=== PATIENT | female | born 1995 | race African-American/Black ===

== ENCOUNTER 2019-03-18 00:18 | Inpatient (IN) | payer MEDICAID ==
[~2019-03-18] VITALS: Ht 160 cm; Wt 70.8 kg
[2019-03-18] VITALS (9 sets, daily range): BP systolic 118–146; BP diastolic 68–100
[2019-03-18 02:30] LABS: Urine Amorphous Crystal FEW /hpf (None Seen); Urine Bacteria FEW /hpf (None Seen); Urine Blood Negative /uL (Negative); Urine Mucus FEW (None Seen); Urine Specific Gravity 1.016 (1.001-1.035); Urine WBC 10 /hpf (0 - 5)
[2019-03-18 02:49] LABS: Alcohol, Urine < 3.0 mg/dL (0-5); Amphetamine Screen, Urine NEGATIVE (NEGATIVE); Barbiturate Scree,Urine NEGATIVE (NEGATIVE); Benzodiazephine Screen, Urine NEGATIVE (NEGATIVE); Cannabinoid Screen, Urine NEGATIVE (NEGATIVE); Cocaine Screen, Urine NEGATIVE (NEGATIVE); Opiate Scree,Urine NEGATIVE (NEGATIVE); Phencyclidine Screen, Urine NEGATIVE (NEGATIVE)
[2019-03-18] MEDS ORDERED: LACT. RINGERS/OXYTOCIN 20UNITS 1,000 ML IV SCH ×2 (03:06→07:22)
[2019-03-18] MEDS ORDERED: PENICILLIN G POT 5MIL/D5 50ML 50 ML IV ONE (03:15)
[2019-03-18] MEDS ORDERED: PHISODERM TOP SOLN 240ML BTL TOP PRN (03:15)
[2019-03-18] MEDS ORDERED: METHYLERGONOVINE MALEATE 0.2 MG/ML AMP IM PRN (03:15)
[2019-03-18] MEDS ORDERED: LIDOCAINE 2%HCL (LOCAL ANESTH.) INJ 20ML MDV ID ONE (03:15)
[2019-03-18] MEDS ORDERED: DERMOPLAST 60ML BOTTLE TOP PRN (03:15)
[2019-03-18] MEDS ORDERED: WITCH HAZEL-GLYCERIN PAD TOP PRN (03:15)
[2019-03-18] MEDS: LACTATED RINGER'S 1,000 ML IV SCH ×2 (03:18→10:22)
[2019-03-18] MEDS ORDERED: ceFAZolin 1GM/50ML 50 ML IV SCH ×2 (03:45→12:00)
[2019-03-18] MEDS: BUTORPHANOL TARTRATE 2 MG/1 ML VIAL IV PRN ×2 (04:00→08:03)
[2019-03-18 04:27] LABS: Basophils # (auto) 0 uL; Basophils % (auto) 0.2 % (0.0-2.0); Eosinophils # (auto) 0 uL; Hemoglobin 9.6 g/dL (12.2-16.2); Mean Corpuscular Volume 69.6 fL (80.0-100.0); Red Cell Distribution Width 16.9 % (11.8-14.3)
[2019-03-18 04:28] LABS: Eosinophils % (auto) 0.3 % (0.0-7.0); Hematocrit 29.9 % (36.0-46.0); Lymphocytes # (auto) 0.8 uL; Mean Corpuscular Hemoglobin 22.3 pg (28.0-32.0); Mean Corpuscular Hgb Conc. 32.1 g/dL (32.0-36.0); Monocytes # (auto) 0.4 uL; Monocytes % (auto) 4.7 % (0.0-12.0); Neutrophils % (auto) 84.8 % (37.0-80.0); Nucleated Red Blood Cells % 0.2 %; Platelet Count (auto) 216 10^3/uL (140-450); Red Blood Cells 4.29 10^6/uL (4.0-5.20); White Blood Cell 8.3 10^3/uL (4.4-10.8)
[2019-03-18 04:37] LABS: INR 0.93 (0.9-1.15)
[2019-03-18 04:41] LABS: Albumin 2.7 g/dL (3.4-5.0); Calcium 8.6 mg/dL (8.5-10.1); Potassium 3.6 mmol/L (3.5-5.1); Uric Acid 5.3 mg/dL (2.6-6.0)
[2019-03-18 04:44] LABS: BUN/Creatinine Ratio 11.3; Bilirubin, Total 0.2 mg/dL (0.2-1.0); Total Protein 6.5 g/dL (6.4-8.2)
[2019-03-18] MEDS ORDERED: PENICILLIN G POTASSIUM 2,500,000 UNITS in D5W 5% 50 ML IV SCH (07:15)
[2019-03-18] MEDS ORDERED: TERBUTALINE SULFATE 1 MG/ML 1ML VIAL SC PRN (07:30)
[2019-03-18] MEDS ORDERED: LIDOCAINE 2%HCL (LOCAL ANESTH.) INJ 20ML MDV ONE (11:04)
[2019-03-18] MEDS ORDERED: CARBOPROST TROMETHAMINE 250 MCG/1ML VIAL IM ONE ×2 (11:34→11:45)
[2019-03-18] MEDS ORDERED: DIPHENOXYLATE W/ATROPINE 2.5 MG TAB PO PRN (11:45)
[2019-03-18] MEDS ORDERED: ONDANSETRON HCL 4 MG/2 ML VIAL IV PRN (11:45)
[2019-03-18] MEDS: IBUPROFEN 600 MG TAB PO PRN ×3 (12:22→23:32)
[2019-03-18] MEDS: ACETAMINOPHEN 325 MG TAB PO PRN ×2 (17:11→21:51)
--- NOTE | 2019-03-18 19:09 | NUR ---
Heart Rate of 130bpm, orders received from for Ancef 1gm [id number], LR at 100ml/hr and a CBC draw. Will follow orders.
[2019-03-18] MEDS: ceFAZolin 1GM/50ML 50 ML IV SCH (20:21)
--- NOTE | 2019-03-18 20:30 | NUR ---
Bottle-feeding Education: Patient encouraged to breastfeed. Benefits of and the risk of providing formula to was discussed. Patient verbalized understanding of the benefits and is aware of risk and insists on bottle-feeding. Formula provided and instruction on formula preparation from the New Beginning booklet reviewed with patient.
[2019-03-18 21:24] LABS: Basophils # (auto) 0 uL; Eosinophils # (auto) 0 uL; Nucleated Red Blood Cells % 0.1 %; White Blood Cell 15.6 10^3/uL (4.4-10.8)
[2019-03-18 21:28] LABS: Basophils % (auto) 0.1 % (0.0-2.0); Hematocrit 27.4 % (36.0-46.0); Hemoglobin 8.7 g/dL (12.2-16.2); Lymphocytes # (auto) 0.9 uL; Lymphocytes % (auto) 5.9 % (10.0-50.0); Mean Corpuscular Hemoglobin 22.1 pg (28.0-32.0); Mean Corpuscular Hgb Conc. 31.8 g/dL (32.0-36.0); Mean Corpuscular Volume 69.7 fL (80.0-100.0); Monocytes # (auto) 0.8 uL; Monocytes % (auto) 5.2 % (0.0-12.0); Neutrophils # (auto) 13.9 uL; Neutrophils % (auto) 88.8 % (37.0-80.0); Platelet Count (auto) 198 10^3/uL (140-450); Red Blood Cells 3.93 10^6/uL (4.0-5.20)
[2019-03-18] MEDS: FERROUS SULFATE 325 MG TAB PO SCH (21:46)
[2019-03-18] MEDS ORDERED: PREN-96 PO (23:30)
[2019-03-19 03:00] VITALS: BP 132/62
[2019-03-19] MEDS: IBUPROFEN 600 MG TAB PO PRN ×3 (03:02→17:14)
[2019-03-19] MEDS: ceFAZolin 1GM/50ML 50 ML IV SCH ×3 (03:02→19:30)
--- NOTE | 2019-03-19 03:11 | NUR ---
Hospitalist Michael [employer] [employer]OTE[employer] SPECIALIST calls unit. SBAR given including medications patient has received since delivery, meconium on delivery, recent vital signs, and labs. Hospitalist states he will place orders.
[2019-03-19] MEDS ORDERED: SODIUM CHLORIDE 0.9% 1,000 ML IV ONE (03:15)
--- NOTE | 2019-03-19 04:00 | NUR ---
EKG performed by RENO Garcia. Patient sleeping during reading. Strip taken to Hospitalist and states he will return strip after reviewing it.
[2019-03-19 05:06] LABS: RPR Non Reactive (Non Reactive)
[2019-03-19] MEDS: FERROUS SULFATE 325 MG TAB PO SCH ×2 (05:48→14:10)
[2019-03-19] MEDS: ACETAMINOPHEN 325 MG TAB PO PRN ×2 (05:49→19:57)
[2019-03-19 06:29] LABS: Albumin 1.8 g/dL (3.4-5.0); Calcium 7.4 mg/dL (8.5-10.1)
[2019-03-19 06:32] LABS: Lactic Acid w/Reflex 2.1 mmol/L (0.4-2.0)
[2019-03-19 06:32] LABS: Bilirubin, Total 0.2 mg/dL (0.2-1.0)
[2019-03-19 07:00] VITALS: BP 127/80
--- NOTE | 2019-03-19 07:00 | NUR ---
Assessment completed. Updated MOB and FOB on plan of care, orders, pain management, plan of care for infant, , bottle feeding, need to hold during feeding, burp after each feeding, call for assistance, medications, lab work. Verbalized understanding of all information. Board updated. Call light in reach. Sd rails up x2. All questions and concerns addressed. Educated on need to not have large blanket on while fever is present due to this intervention will increase temperature. Verbalized understanding.
[2019-03-19 07:06] LABS: Rubella Antibodies, IgG 3.66 index (Immune >0.99)
[2019-03-19] MEDS ORDERED: VANCOMYCIN PER PHARMACY 0 MG IV SCH (07:15)
[2019-03-19] MEDS: DOCUSATE CALCIUM 240 MG CAP PO SCH (10:48)
[2019-03-19 11:15] VITALS: BP 128/77
--- NOTE | 2019-03-19 13:48 | NUR ---
PT REPORT RECEIVED FROM Eliseo STRAUSS RN ON STABLE PATIENT, ASSUMING CARE.
--- NOTE | 2019-03-19 13:50 | NUR ---
PT LYING SEMIFOLWERS IN BED, NO DISTRESS NOTED. PTS IV IS RUNNING LR AT 100ML/HR, PTS REGISTRATIONS ARE EVEN AND NONLABORED. BED IS LOCKED IN LOWEST POSITION, 2 SIDE RAILS UP, CALL LIGHT WITHIN REACH. PTS FUNDUS IS FIRM, AT UMBILICUS, SCANT BLEEDING NOTED, PT DENIES ANY PAIN. WILL CONTINUE TO MONITOR.
[2019-03-19 14:46] VITALS: BP 132/67
--- NOTE | 2019-03-19 14:58 | NUR ---
PAGED HOSPITALIST HEATER WORKER REGARDING VANCOMYCIN ANTIBIOTIC. AWAITING CALL BACK.
[2019-03-19] MEDS ORDERED: LACTATED RINGER'S 1,000 ML IV SCH (15:00)
--- NOTE | 2019-03-19 15:02 | NUR ---
HOSPITALIST DR. PACHECO CALLED AND STATED UNFAMILIAR WITH THE PLAN OF CARE FOR THIS PATIENT, RECEIVED ORDERS TO PAGE DR. NAVARRETE. READ BACK AND VERIFIED ORDERS. WILL CARRY OUT.
--- NOTE | 2019-03-19 15:03 | NUR ---
PAGED HOSPITALIST DR. FLORENCE, AWAITING CALL BACK.
--- NOTE | 2019-03-19 15:05 | NUR ---
DR. FLORENCE CALLED BACK. NOTIFIED DR. FLORENCE REGARDING PTS HOSPITALIST CONSULT WITH DR. MUELLER THIS MORNING AND THE VANCOMYCIN ANTIBIOTIC THAT WAS ORDERED. DR. FLORENCE REVIEWED PTS CHART, ALL LABS AND TESTS AND STATED THAT THERE IS NO INDICATION FOR THE VANCOMYCIN ANTIBIOTIC AND TO CANCEL THE ORDER. READ BACK AND VERIFIED ORDERS. WILL CARRY OUT.
--- NOTE | 2019-03-19 17:04 | NUR ---
PT CALLED AND STATED THAT SHE IS DIZZY UPON ENTERING THE ROOM, PT LYING SUPINE IN BED. PT STATES SHE JUST GOT BACK FROM THE BATHROOM AND FEELS DIZZY. PT ASSESSED, PTS RESPIRATIONS ARE EVEN AND NONLABORED. PTS VITALS TAKEN: 113/54, HR 110BPM, TEMPERATURE 97.8, RR 17, PT STATES HER BACK HURTS AND WOULD LIKE MORTIN. PTS FUNDUS IS FIRM, AT UMBILICUS, SCANT RUBRA BLEEDING NOTED. WILL GIVEN PT PAIN MEDICATION.
--- NOTE | 2019-03-19 17:14 | NUR ---
MOTRIN PAIN MEDICATIONS GIVEN ORDERED. WILL CONTINUE TO MONITOR.
--- NOTE | 2019-03-19 18:18 | NUR ---
PT LYING SUPINE IN BED, NO DISTRESS NOTED, PT DENIES ANY DIZZINESS OR PAIN AT THIS TIME. PTS IV IS RUNNING LR AT 100ML/HR, PTS RESPIRATIONS ARE EVEN AND NONLABORED. BED IS LOCKED IN LOWEST POSITION, 2 SIDE RAILS UP, CALL LIGHT WITHIN REACH.
--- NOTE | 2019-03-19 18:30 | NUR ---
REPORT GIVEN TO Yoanna BENAVIDEZ RN ON STABLE PATIENT, RELINQUISHED CARE. Addendum: 03/19/19 at 1908 by Era Reese RN NOTIFIED OF PTS DIZZINESS FROM HAVING A BOWEL MOVEMENT, PT DENIES DIZZINESS AT THIS TIME.
--- NOTE | 2019-03-19 19:20 | NUR ---
Kelton KATZ CNM IN NURSES STATION, STATUS UPDATE GIVEN ON ALL LABS AND TESTS. Kelton KATZ CNM NOTIFIED PT WAS DIZZY FROM HAVING A BOWEL MOVEMENT IN THE BATHROOM BUT DENIES ANY DIZZINESS AT THIS TIME, TRENDING VITAL SIGNS GIVEN, PT HAS BEEN AFEBRILE. ORDERS RECEIVED FOR RAPID INFLUENZA A & B SWAB, NIDA SCHMIDT RN NOTIFIED AND WILL PLACE ORDER. WILL GIVE Marina SCHMIDT RN REPORT AT THIS TIME ON PATIENT.
--- NOTE | 2019-03-19 19:21 | NUR ---
Marina SCHMIDT RN AT NURSES STATION AND PT REPORT GIVEN, RELINQUISHED CARE.
[2019-03-19 19:30] VITALS: BP 116/76
--- NOTE | 2019-03-19 21:00 | NUR ---
PT. complains of pain at IV site. Swelling noted, soft to touch, no redness observed. IV D/Cd, pressure dressing applied, heat pack placed over site. Primary RN notified.
--- NOTE | 2019-03-19 21:38 | NUR ---
Spoke with ANABEL Zaldivar regarding Pt's IV status, IV site infiltrated and catheter removed by Chrissy, rn office, orders received to discontinue Ancef IV
[2019-03-19 23:15] VITALS: BP 121/62
[2019-03-20] MEDS: IBUPROFEN 600 MG TAB PO PRN ×2 (00:55→10:42)
[2019-03-20] MEDS: FERROUS SULFATE 325 MG TAB PO SCH ×2 (00:56→06:10)
[2019-03-20 03:00] VITALS: BP 122/61
[2019-03-20 07:00] VITALS: BP 125/66
--- NOTE | 2019-03-20 07:00 | NUR ---
Pt resting in bed. Board updated. Updated on [facility], dc home today, pain management. Verbalized understanding. Assessment complete. Call light in reach. Sd rails up x2. Bed low.
--- NOTE | 2019-03-20 10:30 | NUR ---
Discharge: Discharge instructions given as ordered. Pt encouraged to follow up with [facility] at [facility] as instructed. All questions and concerns addressed. Patient verbalized understanding. Medication reconciliation completed and copy given to patient. All required/requested vaccines given and copies of vaccinations given to patient. Patient encouraged to prepare to depart unit.
[2019-03-20] MEDS: DOCUSATE CALCIUM 240 MG CAP PO SCH (10:41)
[2019-03-20 11:00] VITALS: BP 120/70
--- NOTE | 2019-03-20 13:50 | NUR ---
Pt's ride on unit. Pt preparing to depart. Lilia Howard RN in room. Pt stated she lost her phone when she was in triage, but then stated she remembered having the phone in room 4. When informed a report would be filed the patient stated, "Oh don't worry about it, don't worry about it. It's not a big deal. I really don't care". mosaic technician informed Dee, temporary manager utilization of incident.
--- NOTE | 2019-03-20 14:03 | NUR ---
Discharge: Patient taken to vehicle via wheelchair with all personal belongings, accompanied by staff and family member. No distress noted at time of departure, no adverse changes in status since initial assessment.
== END 2019-03-20 14:03 | disposition home or self-care (01) | DRG 560 ==
LOC: LDRP 00:18 → OBSVTOIN 03:15 → LDRP 23:19
PROVIDERS: ADMIT Obstetrics & Gynecology; ATTEND Obstetrics & Gynecology
PROC: 10E0XZZ Delivery of Products of Conception, External Approach (ICD-10-PCS; principal; 2019-03-18)
PROC: 10907ZC Drainage of Amniotic Fluid, Therapeutic from Products of Conception, Via Natural or Artificial Opening (ICD-10-PCS; 2019-03-18)
PROC: 0KQM0ZZ Repair Perineum Muscle, Open Approach (ICD-10-PCS; 2019-03-18)
PROC: 0W8NXZZ Division of Female Perineum, External Approach (ICD-10-PCS; 2019-03-18)
DX: O99.42 Diseases of the circulatory system complicating childbirth (principal); O72.1 Other immediate postpartum hemorrhage; I51.7 Cardiomegaly; Z37.0 Single live birth; Z3A.39 39 weeks gestation of pregnancy; O70.1 Second degree perineal laceration during delivery
CPT/HCPCS: 36415; 59025; 59409; 71045; 76805; 80053; 80307; 81001; 81002; 83605; 84112; 84443; 84484; 84550; 85025; 85610; 85730; 86592; 86703; 86762; 86850; 86900; 86901; 87040; 87340; 87804; 93005; 96361; 96365; 96366; 96372; 96374; 96375; G0378; J0690; J2590; J7060

== ENCOUNTER 2022-04-16 10:06 | Emergency (ER) | payer MEDICAID ==
[~2022-04-16] VITALS: Ht 160 cm; Wt 80.0 kg
[~2022-04-16 10:06] MED LIST: PREN-96 PO
[2022-04-16] MEDS ORDERED: KETOROLAC TROMETH 60MG/2ML VIAL IM ONE (12:00)
[2022-04-16] MEDS ORDERED: ONDA-144 PO (12:43)
[2022-04-16] MEDS ORDERED: NAP500T PO (12:43)
[2022-04-16 13:40] VITALS: BP 134/80
== END 2022-04-16 13:42 | disposition home or self-care (01) ==
LOC: ER 10:06 → EDBD 10:06 → ER 13:42
DX: R10.13 Epigastric pain (principal); B34.9 Viral infection, unspecified; M79.10 Myalgia, unspecified site; Z20.822 Contact with and (suspected) exposure to COVID-19
CPT/HCPCS: 36415; 71045; 74176; 87426; 87804